=== PATIENT | male | born 1990 | race Caucasian/White ===

== ENCOUNTER 2017-08-24 10:26 | Outpatient (CLI) | payer OTHER ==
--- NOTE | 2017-08-24 14:00 | RAD ---
CERVICAL SPINE THREE VIEWS: HISTORY: Cervical pain. FINDINGS: The cervical vertebrae maintain normal height and alignment. The disk spaces are normally maintaine d. The posterior elements are normally aligned. IMPRESSION: Unremarkable cervical spine. POS: [facility]
== END 2017-08-24 10:27 | disposition home or self-care (01) ==
LOC: SCSRAD 10:26
PROVIDERS: ATTEND Family Medicine
DX: S16.1XXA Strain of muscle, fascia and tendon at neck level, initial encounter (principal)
CPT/HCPCS: 72040